=== PATIENT | male | born 1955 | race Caucasian/White ===

== ENCOUNTER 2022-07-20 14:07 | Emergency (ER) | payer MEDICARE ==
[~2022-07-20] VITALS: Ht 165.1 cm; Wt 69.0 kg
[2022-07-20 14:11] VITALS: BP 119/69
[2022-07-20 14:52] LABS: BASOPHILS % 0.8 % (0.0-2.0); EOSINOPHILS % 1.8 % (0.0-5.0); HEMOGLOBIN. 11.5 g/dL (14.0-18.0); LYMPHOCYTES % 26.4 % (20.0-50.0); MEAN CORPUSCULAR HEMOGLOBIN 34.3 pg (28.0-32.0); MEAN CORPUSCULAR VOLUME 101.1 fL (80.0-94.0); MEAN PLATELET VOLUME 7.5 fl (7.4-10.4); MONOCYTES % 12.2 % (2.0-8.0); NEUTROPHILS % 58.8 % (40.0-76.0); PLATELET 274 x1000/uL (130-400); RED BLOOD CELL COUNT 3.36 mill/uL (4.7-6.1); RED CELL DISTRIBUTION WIDTH 12.7 % (11.6-14.6)
[2022-07-20 14:58] LABS: CHLORIDE 101 mEq/L (98-107)
== END 2022-07-20 16:28 | disposition home or self-care (01) ==
LOC: ER 14:22
DX: R55 Syncope and collapse (principal); E11.9 Type 2 diabetes mellitus without complications
CPT/HCPCS: 36415; 71045; 80053; 84484; 85025; 93005; 99285